=== PATIENT | male | born 1980 | race Caucasian/White ===

== ENCOUNTER 2020-08-19 06:00 | Outpatient (RCR) | payer OTHER, SELFPAY | END 2020-09-04 23:59 | disposition home or self-care (01) | LOC: GPT 06:00 | PROVIDERS: Referring Provider Family Medicine; Visit Provider Family Medicine | DX: M72.2 Plantar fascial fibromatosis (principal) | CPT/HCPCS: 97032; 97110; 97112; 97140; 97161; 97530 ==

== ENCOUNTER 2020-09-05 06:00 | Outpatient (RCR) | payer OTHER, SELFPAY | END 2020-10-04 23:59 | disposition home or self-care (01) | LOC: GPT 06:00 | PROVIDERS: Referring Provider Family Medicine; Visit Provider Family Medicine | DX: M72.2 Plantar fascial fibromatosis (principal) | CPT/HCPCS: 97110; 97112; 97530 ==

== ENCOUNTER 2020-10-05 06:00 | Outpatient (RCR) | payer OTHER, SELFPAY | END 2020-11-04 23:59 | disposition home or self-care (01) | LOC: GPT 06:00 | PROVIDERS: Referring Provider Family Medicine; Visit Provider Family Medicine | DX: M72.2 Plantar fascial fibromatosis (principal) | CPT/HCPCS: 97032; 97110; 97530 ==

== ENCOUNTER 2020-10-20 09:42 | Outpatient (CLI) | payer OTHER, SELFPAY ==
--- NOTE | 2020-10-20 09:52 | CT_ITS ---
WS: [id number] CT scan of the head, with and without IV contrast, 10/20/2020 Clinical Data: SYNCOPE Comparison: None. DLP: 1984.[address] scans at [facility] use at least one of these dose optimization techniques: automat ed exposure control; mA and/or kV adjustment per patient size (includes targeted exams where dose is matched to clinical indication); or iterative reconstruction. Findings: The ventricular system is normal without shift. No recent infarct or hemorrhage is seen. There are no abnormal intracerebral masses. The cerebellum and brainstem are not remarkable. No abnormal contrast enhancement of any structure occurs. There is no evidence of metastatic disease. Bony windows of the skull and skull base show no fractures or erosions. 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 CT/CT head wo/w con [id number] Impression: Negative CT scan of the head with and without IV contrast.
[2020-10-20] MEDS: iohexol 300 mg/mL 100 mL Btl IV (10:13)
== END 2020-10-20 09:43 | disposition home or self-care (01) ==
LOC: RADWPI 09:49
PROVIDERS: PCP Family Medicine; Visit Provider Family Medicine
DX: R55 Syncope and collapse (principal)
CPT/HCPCS: 70470; Q9967

== ENCOUNTER 2021-07-30 04:10 | Emergency (ER) | payer MEDICARE, OTHER, SELFPAY ==
[2021-07-30 04:12] VITALS: BP 131/85; PULSE 79; RESP 19; TEMP 37; O2SAT 94; BMI 33.6
[2021-07-30 04:19] VITALS: BP 131/85; PULSE 79; RESP 14; O2SAT 95
[2021-07-30] MEDS: tetracaine 0.5% Op Soln 4 mL Btl 1 DROP EYE-RIGHT (04:40)
--- NOTE | 2021-07-30 04:40 | ED_ITS ---
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 He awoke around 2 AM with a painful right eye. His vision is okay, essentially normal, but he has significant pain to the eye. He used eyewash at home with no improvement. chief complaint: eye pain and eye redness Onset (ago): hour(s) Onset description: sudden and awoke with symptoms Duration: constant Location: right eye Eye Symptoms: burning, redness, pain and foreign body sensation Place: home Mechanism: other If Pain, Quality: burning Associated symptoms: Denies cough, fever(s), headache(s), neck pain, rhinorrhea or short of breath Review of Systems Const: Denies: fever(s) ENMT: Denies: throat pain Resp: Denies: productive cough or non-productive cough Musc: Denies: neck pain Neuro: Denies: headache(s) PFSH ED PFSH: Medical History (Updated 07/30/21 @ 04:52 by Miah Valencia DO) Syncope and collapse Social History (Updated 11/09/20 @ 15:48 by Anita Delgado RN) Smoking and tobacco status: never smoked Physical Exam Const: COMMON NORMALS: no acute distress, patient oriented x3 and alert Eye: COMMON NORMALS: Equal, round and reactive pupils present and EOMs intact bilaterally GENERAL EYE: normal light reflex VISUAL ACUITY: Yes acuity normal ALIGNMENT: Yes alignment normal PERIORBITAL: periorbital findings normal EYELID: eyelids normal CONJUNCTIVA: Yes conjunctival abnormal positive right conjunctival injection; without discharge CORNEA: Yes fluorescein used PUPIL: Yes Equal, round and reactive pupils present DIRECT OPHTHALMOSCOPY: Yes normal light reflex and No photophobia Resp: COMMON NORMALS: normal respiratory effort and No use of accessory muscles Neuro: COMMON NORMALS: patient oriented x3 SENSORIUM/ORIENTATION: Yes alert Course Vital Signs: Vital signs: Vital Signs Temperature 98.6 F 07/30/21 04:12 Pulse Rate 75 07/30/21 05:10 Respiratory Rate 14 07/30/21 05:10 Blood Pressure 116/82 07/30/21 05:10 Pulse Oximetry 96 07/30/21 05:10 Discharge Plan Discharge Patient Disposition: Home Clinical Impression: Conjunctivitis Qualifiers: Conjunctivitis type: acute Acute conjunctivitis type: unspecified Laterality: right Qualified Code(s): H10.31 - Unspecified acute conjunctivitis, right eye Condition: Stable Discharge Orders: Discharge ED (Routine); Ordered 07/30/21 Ordered By: Miah Valencia Referrals: Darrell Taylor MD [Physician] - 1-[address] [Primary Care Provider] - Patient Instructions: Conjunctivitis (ED) Activity Restrictions/Additional Instructions: Return for worsening pain despite treatment, worsening vision, drainage from the eye, any other concerning symptoms. 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
[2021-07-30] MEDS: eye irrigation 30 mL Btl EYE-RIGHT (04:41)
[2021-07-30] MEDS: fluorescein 1 mg Strip EYE-RIGHT (04:41)
[2021-07-30] MEDS: polymyxin-trimethoprim Op Soln 10 mL Btl 1 DROP EYE-RIGHT (05:09)
[2021-07-30] MEDS: ketorolac 0.5% Op 5 mL Btl 1 DROP EYE-RIGHT (05:09)
[2021-07-30 05:10] VITALS: BP 116/82; PULSE 75; RESP 14; O2SAT 96
== END 2021-07-30 05:06 | disposition home or self-care (01) ==
PROVIDERS: Emergency Provider Emergency Medicine; PCP Family Medicine
DX: H10.31 Unspecified acute conjunctivitis, right eye (principal)
CPT/HCPCS: 99283

== ENCOUNTER 2023-07-06 06:00 | Outpatient (RCR) | payer MEDICARE, OTHER, SELFPAY | END 2023-08-04 23:59 | disposition home or self-care (01) | LOC: GPT 06:00 | PROVIDERS: Visit Provider Orthopaedic Surgery | DX: Z98.890 Other specified postprocedural states (principal) | CPT/HCPCS: 97110; 97112; 97140; 97161 ==

== ENCOUNTER 2023-08-05 06:00 | Outpatient (RCR) | payer MEDICARE, OTHER, SELFPAY | END 2023-09-04 23:59 | disposition home or self-care (01) | LOC: GPT 06:00 | PROVIDERS: Visit Provider Orthopaedic Surgery | DX: Z47.89 Encounter for other orthopedic aftercare (principal); Z98.890 Other specified postprocedural states | CPT/HCPCS: 97110; 97112; 97140; 97530 ==

== ENCOUNTER 2023-09-05 06:00 | Outpatient (RCR) | payer MEDICARE, OTHER, SELFPAY | END 2023-10-04 23:59 | disposition home or self-care (01) | LOC: GPT 06:00 | PROVIDERS: Visit Provider Orthopaedic Surgery | DX: Z98.890 Other specified postprocedural states (principal) | CPT/HCPCS: 97110; 97112; 97140; 97530 ==

== ENCOUNTER 2023-10-05 06:00 | Outpatient (RCR) | payer MEDICARE, OTHER, SELFPAY | END 2023-11-04 23:59 | disposition home or self-care (01) | LOC: GPT 06:00 | PROVIDERS: PCP Family Medicine; Visit Provider Orthopaedic Surgery | DX: Z98.890 Other specified postprocedural states (principal) | CPT/HCPCS: 97110; 97164; 97530 ==

== ENCOUNTER → 2023-10-23 08:21 | Outpatient (BNVA) | payer MEDICARE, OTHER, SELFPAY | PROVIDERS: PCP Family Medicine; Referring Provider Family Medicine; Visit Provider Surgery | DX: Z12.11 Encounter for screening for malignant neoplasm of colon (principal) | CPT/HCPCS: 99024; 99203 ==

== ENCOUNTER 2024-01-03 09:53 | Day surgery (SDC) | payer MEDICARE, OTHER, SELFPAY ==
[2024-01-03 10:03] VITALS: BP 109/77; PULSE 72; RESP 16; O2SAT 96; BMI 28.8
[2024-01-03] MEDS: sodium chloride 0.9% 1,000 ML 30 ML IV (10:13)
--- NOTE | 2024-01-03 10:20 | ANES.PREANE2 ---
Pre-Anesthetic Assessment Height/Weight: Height 1.85 m Weight 98.883 kg Pulse Resp BP Pulse Ox O2 Del Method 72 16 109/77 96 Room Air 01/03/24 10:03 01/03/24 10:03 01/03/24 10:03 01/03/24 10:03 01/03/24 10:03 Preop Diagnosis: Screening Operation Date: 01/03/24 11:00 Proposed Procedures p [id number] colon G0121 screen colon A risk z12.11(Not Applicable) - Saurabh Kumar MD Familial anesthetic complications: None Was Beta Fela taken within 24 hours: N/A Was Clonidine taken within 24 hours: N/A Last intake: Intake Last Liquid Date 01/02/24 Last Liquid Time 20:00 Last Solid Date 01/01/24 Last Solid Time 16:00 Social No alcohol and No tobacco Exam alert, oriented x 3, clear to auscultation bilaterally and regular rate & rhythm Airway Submandibular: within normal limits Cervical ROM: within normal limits Mallampati: Class II Dentition: full History/ROS No significant history except as noted and No significant complaints Pulmonary None reported CV/HEM None reported None reported Hepatic None reported GI Gastroesophageal Reflux Disease Metabolic Hyperlipidemia [facility] [place]/sk Lower Back Pain and Osteoarthritis/DJD Neuropsych Anxiety, Depression and Syncope (None in the last year) Anesthetic Plan ASA status: 2 Anesthesia: Anesthesia Evaluation, General and MAC Risk of > 500 ml blood loss (7ml/kg in children): No Medications/Allergies Home Medications Medication Instructions Recorded Confirmed Last Taken Type bupropion HCl 150 mg 24 hr tablet, 300 mg PO QAM 10/23/23 01/03/24 01/03/24 History extended release Allergies Allergy/AdvReac Type Severity Reaction Status Date / Time blueberry Allergy Unknown Unknown Verified 01/01/24 11:03 Current Medications Generic Name Dose Route Start Last Admin Trade Name Freq PRN Reason Stop Dose Admin Sodium Chloride 1,000 mls @ 30 mls/hr 01/03/24 10:00 01/03/24 10:13 Sodium Chloride 0.9% IV 30 mls/hr .Q24H ROSIE Administration PFSH Anesthesia Medical History Syncope and collapse Family History Father No problems noted. Mother Heart disease Hypertension Social History Smoking and tobacco/nicotine status: never used tobacco/nicotine Alcohol intake: current Alcohol intake frequency: holidays/special occasions only Data Anesthesia Cardiac Studies: No Data to Display
--- NOTE | 2024-01-03 11:10 | W.PM.OPSFHP ---
Same Day Surgery H&P Indication for Procedure/HPI DATE OF PROCEDURE: January 03, 2024 CHIEF COMPLAINT/INDICATIONFOR SURGICAL PROCEDURE: need for screening colonoscopy PREOP DIAGNOSIS: Screening PLANNED PROCEDURE: Operation Date: 01/03/24 11:00 Proposed Procedures p 23951 colon G0121 screen colon A risk z12.11(Not Applicable) - Saurabh Kumar MD Medications/Allergies* Home Medications Medication Instructions Recorded Confirmed Type bupropion HCl 150 mg 24 hr tablet, 300 mg PO QAM 10/23/23 01/03/24 History extended release Allergies/Adverse Reactions Allergy/AdvReac Type Severity Reaction Status Date / Time blueberry Allergy Unknown Unknown Verified 01/01/24 11:03 Current Medications: Generic Name Dose Route Start Last Admin Trade Name Freq PRN Reason Stop Dose Admin Sodium Chloride 1,000 mls @ 30 mls/hr 01/03/24 10:00 01/03/24 10:13 Sodium Chloride 0.9% IV 30 mls/hr .Q24H ROSIE Administration Pertinent History/Comorbid Conditions* Medical History (Updated 12/10/21 @ 15:53 by Nestor Ochoa MD) Syncope and collapse Family History (Updated 10/23/23 @ 08:31 by LUCILLE Stark) Heart disease Mother Hypertension Mother Social History Smoking and tobacco/nicotine status: never used tobacco/nicotine Alcohol intake: current Alcohol intake frequency: holidays/special occasions only Pertinent Exam Findings alert, oriented x 3, clear to auscultation bilaterally and operative site marked Recommendations Surgery/Procedure today Coding Level of Care Code Acute Code for Chg Sam
[2024-01-03 12:05] VITALS: BP 113/73; PULSE 70; RESP 16; TEMP 36.1; O2SAT 97
[2024-01-03 12:15] VITALS: BP 112/97; PULSE 75; RESP 16; O2SAT 96
--- NOTE | 2024-01-03 14:25 | ANE.PACU2 ---
Inpatient post-anesthesia follow up: Airway intact: Yes Vital signs: Temperature 97.0 F Pulse Rate 75 Respiratory Rate 16 Blood Pressure 112/97 Pulse Oximetry 96 Oxygen Delivery Me thod Room Air Oxygen Flow Rate Fraction of Inspir ed Oxygen Hydration adequate: Yes Nausea and vomiting: No Pain level: 2 Mental status: Baseline
== END 2024-01-03 12:40 | disposition home or self-care (01) ==
PROVIDERS: PCP Family Medicine; Visit Provider Surgery
PROC: 0DJD8ZZ Inspection of Lower Intestinal Tract, Via Natural or Artificial Opening Endoscopic (ICD-10-PCS; CPT 45378; principal; 2024-01-03 11:00)
DX: Z12.11 Encounter for screening for malignant neoplasm of colon (principal); D12.3 Benign neoplasm of transverse colon; E78.5 Hyperlipidemia, unspecified; K21.9 Gastro-esophageal reflux disease without esophagitis
CPT/HCPCS: 45380; 88305; J2704; J7030

== ENCOUNTER → 2024-01-22 10:03 | Outpatient (BNVA) | payer MEDICARE, OTHER, SELFPAY | PROVIDERS: PCP Family Medicine; Visit Provider Surgery | DX: Z09 Encounter for follow-up examination after completed treatment for conditions other than malignant neoplasm (principal) | CPT/HCPCS: 99213 ==

== ENCOUNTER → 2025-09-24 11:15 | Outpatient (BNVA) | payer MEDICARE, OTHER, SELFPAY | PROVIDERS: PCP Family Medicine; Visit Provider Nurse Practitioner Family | DX: N52.9 Male erectile dysfunction, unspecified (principal) | CPT/HCPCS: 82670; 84153; 84403; 85025 ==